=== PATIENT | male | born 1995 | race Hispanic/Latino ===

== ENCOUNTER 2017-12-29 12:24 | Emergency (ER) | payer SELFPAY ==
--- NOTE | 2017-12-29 14:42 | RAD REPORT ---
EXAM DESCRIPTION: RAD - Chest Pa And Lat (2 Views) - 12/29/2017 2:28 pm CLINICAL HISTORY: RIB PAIN - RIGHT Chest pain. COMPARISON: No comparisons FINDINGS: The lungs are clear. The heart is normal in size. No displaced fractures. IMPRESSION: No acute or concerning finding suspected.
--- NOTE | 2017-12-29 14:45 | ER ---
Nurse's Notes [facility] Name: Enrique White Age: 22 yrs Sex: Male : 1995 Arrival Date: 12/29/2017 Time: 12:29 Bed 9 Private MD: Diagnosis: Chest pain, unspecified-chest wall pain Presentation: 12/29 12:38 Presenting complaint: Significant other states: right sided rib pain X 1 week, was hose iw playing and hit it on something. 12:39 Transition of care: patient was not received from another setting of care. Onset of iw symptoms was December 23, 2017. Risk Assessment: Do you want to hurt yourself or someone else? Patient reports no desire to harm self or others. Initial Sepsis Screen: Does the patient meet any 2 criteria? No. Patient's initial sepsis screen is negative. Does the patient have a suspected source of infection? No. Patient's initial sepsis screen is negative. Care prior to arrival: None. 12:39 Method Of Arrival: Ambulatory iw 12:39 Acuity: KAVIN 4 iw Historical: - Allergies: 12:40 No Known Allergies; iw - Home Meds: 12:40 None [Active]; iw - PMHx: 12:40 None; iw - PSHx: 12:40 None; iw - Immunization history:: Adult Immunizations not up to date. - Social history:: Smoking status: Patient uses tobacco products, denies chronic smoking, but will smoke occasionally. - Ebola Screening: : Patient negative for fever greater than or equal to 101.5 degrees Fahrenheit, and additional compatible Ebola Virus Disease symptoms Patient denies exposure to infectious person Patient denies travel to an Ebola-affected area in the 21 days before illness onset No symptoms or risks identified at this time. Screenin:49 Abuse screen: Denies threats or abuse. Denies injuries from another. Nutritional iw screening: No deficits noted. Tuberculosis screening: No symptoms or risk factors identified. Fall Risk None identified. Assessment: 12:48 General: Appears in no apparent distress. Behavior is calm, cooperative. Pain: iw Complains of pain in right lateral anterior chest. Neuro: Level of Consciousness is awake, alert, obeys commands, Oriented to person, place, time, situation, Moves all extremities. Full function. Cardiovascular: Patient's skin is warm and dry. Respiratory: Respiratory effort is even, unlabored. Derm: Skin is intact, is healthy with good turgor. Musculoskeletal: Range of motion: intact in all extremities. Vital Signs: 12:40 BP 129 / 74; Pulse 50; Resp 16; Temp 97.1(TE); Pulse Ox 100% ; Weight 77.11 kg; Height iw 5 ft. 5 in. (165.10 cm); Pain 8/10; 12:40 Body Mass Index 28.29 (77.11 kg, 165.10 cm) iw ED Course: 12:29 Patient arrived in ED. mr 12:40 Triage completed. iw 12:40 Arm band placed on. iw 12:45 Sharita Gaines FNP-C is PHCP. kb 12:46 August Francois MD is Attending Physician. kb 12:48 Thao Smith, RN is Primary Nurse. iw 12:49 No provider procedures requiring assistance completed. Patient did not have IV access iw during this emergency room visit. 13:10 Patient has correct armband on for positive identification. iw 14:20 Patient moved to radiology via wheelchair. jr1 14:26 X-ray completed. Patient tolerated procedure well. jr1 14:28 Chest Pa And Lat (2 Views) XRAY In Process Unspecified. EDMS Administered Medications: No medications were administered Outcome: 14:45 Discharge ordered by MD. kb 14:56 Discharged to home ambulatory, with family. iw 14:56 Condition: good 14:56 Discharge instructions given to patient, family, Instructed on discharge instructions, follow up and referral plans. Demonstrated understanding of instructions, follow-up care. 14:57 Patient left the ED. iw Signatures: Dispatcher [employer] EDMS Sharita Gaines FNP-C FNP-Ckb Lanny Jaffe Jennifer jr1 Thao Smith, RN RN iw
--- NOTE | 2017-12-29 14:45 | EDPHYS ---
Physician Documentation [facility] Name: Enrique White Age: 22 yrs Sex: Male : 1995 Arrival Date: 12/29/2017 Time: 12:29 Bed 9 Private MD: ED Physician August Francois HPI: 12/29 13:30 This 22 yrs old Male presents to ER via Ambulatory with complaints of Back kb Pain. 13:30 The patient or guardian reports chest pain that is located primarily in the anterior kb chest wall. Onset: The symptoms/episode began/occurred last week. The pain does not radiate. Associated signs and symptoms: The patient has no apparent associated signs or symptoms. The chest pain is described as sharp. Duration: The patient or guardian reports a single episode. Modifying factors: The symptoms are alleviated by nothing. the symptoms are aggravated by movement, palpation of area. Severity of pain: At its worst the pain was moderate in the emergency department the pain is unchanged. The patient has not experienced similar symptoms in the past. The patient has not recently seen a physician. Pt reports he was horse playing at work and fell onto a coworker hitting right side of chest. c/o right anterior lower rib pain for 1 week. Historical: - Allergies: 12:40 No Known Allergies; iw - Home Meds: 12:40 None [Active]; iw - PMHx: 12:40 None; iw - PSHx: 12:40 None; iw - Immunization history:: Adult Immunizations not up to date. - Social history:: Smoking status: Patient uses tobacco products, denies chronic smoking, but will smoke occasionally. - Ebola Screening: : Patient negative for fever greater than or equal to 101.5 degrees Fahrenheit, and additional compatible Ebola Virus Disease symptoms Patient denies exposure to infectious person Patient denies travel to an Ebola-affected area in the 21 days before illness onset No symptoms or risks identified at this time. ROS: 13:29 Constitutional: Negative for fever, chills, and weight loss, Respiratory: Negative for kb shortness of breath, cough, wheezing, and pleuritic chest pain, Abdomen/GI: Negative for abdominal pain, nausea, vomiting, diarrhea, and constipation, Back: Negative for injury and pain, : Negative for injury, bleeding, discharge, and swelling, MS/Extremity: Negative for injury and deformity, Skin: Negative for injury, rash, and discoloration, Neuro: Negative for headache, weakness, numbness, tingling, and seizure. 13:29 Cardiovascular: Positive for chest pain, of the right lateral anterior chest. Exam: 13:29 Constitutional: This is a well developed, well nourished patient who is awake, alert, kb and in no acute distress. Head/Face: Normocephalic, atraumatic. Cardiovascular: Regular rate and rhythm with a normal S1 and S2. No gallops, murmurs, or rubs. Normal PMI, no JVD. No pulse deficits. Respiratory: Lungs have equal breath sounds bilaterally, clear to auscultation and percussion. No rales, rhonchi or wheezes noted. No increased work of breathing, no retractions or nasal flaring. Abdomen/GI: Soft, non-tender, with normal bowel sounds. No distension or tympany. No guarding or rebound. No evidence of tenderness throughout. Skin: Warm, dry with normal turgor. Normal color with no rashes, no lesions, and no evidence of cellulitis. MS/ Extremity: Pulses equal, no cyanosis. Neurovascular intact. Full, normal range of motion. Neuro: Awake and alert, GCS 15, oriented to person, place, time, and situation. Cranial nerves II-XII grossly intact. Motor strength 5/5 in all extremities. Sensory grossly intact. Cerebellar exam normal. Normal gait. 13:29 Chest/axilla: Inspection: normal, Palpation: tenderness, that is moderate, of the right lateral anterior chest, that totally reproduces the patient's complaints. Vital Signs: 12:40 BP 129 / 74; Pulse 50; Resp 16; Temp 97.1(TE); Pulse Ox 100% ; Weight 77.11 kg; Height iw 5 ft. 5 in. (165.10 cm); Pain 8/10; 12:40 Body Mass Index 28.29 (77.11 kg, 165.10 cm) iw MDM: 12:46 Patient medically screened. kb 13:29 Data reviewed: vital signs, nurses notes. Data interpreted: Pulse oximetry: on room air kb is 100 %. Interpretation: normal. Counseling: I had a detailed discussion with the patient and/or guardian regarding: the historical points, exam findings, and any diagnostic results supporting the discharge/admit diagnosis, radiology results, the need for outpatient follow up, a family practitioner, to return to the emergency department if symptoms worsen or persist or if there are any questions or concerns that arise at home. 12/29 12:55 Order name: Chest Pa And Lat (2 Views) XRAY; Complete Time: 14:43 kb Administered Medications: No medications were administered Disposition: 16:55 Co-signature as Attending Physician, August Francois MD. rn Disposition: 12/29/17 14:45 Discharged to Home. Impression: Chest pain, unspecified - chest wall pain. - Condition is Stable. - Discharge Instructions: Chest Wall Pain, [id number]. - Work release form, Medication Reconciliation Form, Thank You Letter, Antibiotic Education, Prescription Opioid Use form. - Follow up: Private Physician; When: 2 - 3 days; Reason: Recheck today's complaints, Continuance of care, Re-evaluation by your physician. Follow up: Emergency Department; When: As needed; Reason: Worsening of condition. Signatures: Dispatcher [employer] Sharita Mccord, SERVICE COORDINATOR [facility] SERVICE COORDINATOR [facility] Thao Smith, RN RN August Arreola MD MD internal controls specialist: (The following items were deleted from the chart) 14:57 14:45 12/29/2017 14:45 Discharged to Home. Impression: Chest pain, unspecified - chest iw wall pain. Condition is Stable. Forms are Medication Reconciliation Form, Thank You Letter, Antibiotic Education, Prescription Opioid Use. Follow up: Private Physician; When: 2 - 3 days; Reason: Recheck today's complaints, Continuance of care, Re-evaluation by your physician. Follow up: Emergency Department; When: As needed; Reason: Worsening of condition. kb
== END 2017-12-29 14:57 | disposition home or self-care (01) ==
LOC: ER 12:24
DX: R07.89 Other chest pain (principal); Z72.0 Tobacco use
CPT/HCPCS: 71046; 99283